=== PATIENT | male | born 1975 | race Caucasian/White ===

== ENCOUNTER 2021-08-10 21:12 | Emergency (ER) | payer OTHER ==
--- NOTE | 2021-08-10 22:13 | XR ---
EXAMINATION TYPE: XR ankle complete LT DATE OF EXAM: 08/10/2021 COMPARISON: NONE HISTORY: Pain TECHNIQUE: 3 views FINDINGS: There is a plate with screws fixing the distal fibula. Ankle mortise is anatomic. I see no fracture nor dislocation. There is plantar and Achilles calcaneal spurring. IMPRESSION: No acute abnormality of the left ankle.
[2021-08-10] MEDS: IBUPROFEN 600 MG TAB PO STA (22:29)
[2021-08-10] MEDS: ACET/COD 300 MG/30 MG STARTER PACK 6 TAB BTL PO STA (22:31)
--- NOTE | 2021-08-10 22:50 | ED ---
Lower Extremity Injury HPI - General Chief Complaint: Extremity Injury, Lower Stated Complaint: Broken Ankle Time Seen by Provider: 08/10/21 21:48 Source: patient, family, RN notes reviewed, old records reviewed Mode of arrival: ambulatory Limitations: no limitations - History of Present Illness Initial Comments: This is a 46-year-old male to the emergency room today. Patient Dese for evaluation of left ankle pain left ankle pain with history of left ankle surgery. He did so was ankle all walking and left swelling of the lateral aspect of the ankle. He does have some pain with bearing weight but no other complaints MD Complaint: ankle injury -: hour(s) Injury: Ankle: Left Type of Injury: inversion, hyperextension Place: home Severity: moderate Severity scale (1-10): 4 Improves With: nothing Worsens With: weight bearing Context: direct blow, running Associated Symptoms: able to partially bear weight Treatments Prior to Arrival: other (none) - Related Data Allergies Allergy/AdvReac Type Severity Reaction Status Date / Time No Known Allergies Allergy Verified 08/10/21 21:45 Review of Systems ROS Statement: Those systems with pertinent positive or pertinent negative responses have been documented in the HPI. ROS Other: All systems not noted in ROS Statement are negative. Past Medical History Past Medical History: No Reported History History of Any Multi-Drug Resistant Organisms: None Reported Additional Past Surgical History / Comment(s): left ankle Smoking Status: Current every day smoker Past Alcohol Use History: Daily Past Drug Use History: None Reported General Exam Limitations: no limitations General appearance: alert, in no apparent distress Head exam: Present: atraumatic, normocephalic, normal inspection Eye exam: Present: normal appearance, PERRL, EOMI. Absent: scleral icterus, conjunctival injection, periorbital swelling ENT exam: Present: normal exam, mucous membranes moist Neck exam: Present: normal inspection. Absent: tenderness, meningismus, lymphadenopathy Respiratory exam: Present: normal lung sounds bilaterally. Absent: respiratory distress, wheezes, rales, rhonchi, stridor Cardiovascular Exam: Present: normal rhythm, tachycardia, normal heart sounds. Absent: systolic murmur, diastolic murmur, rubs, gallop, clicks GI/Abdominal exam: Present: soft, normal bowel sounds. Absent: distended, tenderness, guarding, rebound, rigid Extremities exam: Present: normal inspection, full ROM, normal capillary refill. Absent: tenderness, pedal edema, joint swelling, calf tenderness Back exam: Present: normal inspection Neurological exam: Present: alert, oriented X3, CN II-XII intact Psychiatric exam: Present: normal affect, normal mood Skin exam: Present: warm, dry, intact, normal color. Absent: rash Course Vital Signs 08/10/21 08/10/21 08/10/21 21:43 21:48 23:10 Temperature 98.5 F 98.3 F Pulse Rate 102 H 82 Respiratory 20 16 Rate Blood Pressure 157/97 156/78 O2 Sat by Pulse 98 98 Oximetry - Reevaluation(s) Reevaluation #1: Medical record is reviewed Patient symptoms are improved here in the ER Patient informed results questions answered Medical Decision Making - Medical Decision Making 46 male to the ER for evaluation of left ankle pain. History of left ankle surgery x-rays negative patient can be discharged home - Radiology Data Radiology results: report reviewed (X-ray left ankle negative for acute disease), image reviewed Disposition Clinical Impression: Left ankle sprain Disposition: HOME SELF-CARE Condition: Good Instructions (If sedation given, give patient instructions): Ankle Sprain (ED) Is patient prescribed a controlled substance at d/c from ED?: No Referrals: None,Stated [Primary Care Provider] - 1-2 days
[2021-08-10 23:23] VITALS: BP 156/78; PULSE 82; RESP 16; TEMP 98.3
== END 2021-08-10 23:10 | disposition home or self-care (01) ==
LOC: EC 21:12
DX: S93.402A Sprain of unspecified ligament of left ankle, initial encounter (principal); F17.200 Nicotine dependence, unspecified, uncomplicated; Z72.89 Other problems related to lifestyle; X58.XXXA Exposure to other specified factors, initial encounter
CPT/HCPCS: 99283

== ENCOUNTER 2023-07-31 20:11 | Emergency (ER) | payer OTHER ==
[2023-07-31 20:41] VITALS: BP 164/93; PULSE 121; RESP 20; TEMP 98.4
--- NOTE | 2023-07-31 20:44 | ED ---
Lower Extremity Injury HPI - General Chief Complaint: Extremity Injury, Lower Stated Complaint: fall injured left ankle Time Seen by Provider: 07/31/23 20:44 Source: patient, RN notes reviewed Mode of arrival: ambulatory Limitations: no limitations - History of Present Illness Initial Comments: Patient is a 48-year-old male presented to ER with chief complaint of left ankle injury. Patient states he accidentally slipped on ice today and now is endorsing left ankle pain. Denies any paresthesias or other injuries. Denies any head injury, loss of consciousness. - Related Data Allergies Allergy/AdvReac Type Severity Reaction Status Date / Time No Known Allergies Allergy Verified 07/31/23 20:40 Review of Systems ROS Statement: Those systems with pertinent positive or pertinent negative responses have been documented in the HPI. ROS Other: All systems not noted in ROS Statement are negative. Past Medical History Past Medical History: No Reported History History of Any Multi-Drug Resistant Organisms: None Reported Past Surgical History: Orthopedic Surgery Additional Past Surgical History / Comment(s): left ankle Past Psychological History: No Psychological Hx Reported Smoking Status: Current every day smoker Past Alcohol Use History: Daily Past Drug Use History: Marijuana General Exam - General Exam Comments Initial Comments: Visual Physical Exam Vital signs reviewed General: Well-appearing, nontoxic, no acute distress. Head: Normocephalic, atraumatic Eyes: PERRLA, EOMI ENT: Airway patent Chest: Nonlabored breathing Skin: No visual rash, normal skin tone Neuro: Alert and oriented 3 Musculoskeletal: No gross abnormalities Limitations: no limitations Course Vital Signs 07/31/23 20:38 Temperature 98.4 F Pulse Rate 121 H Respiratory 20 Rate Blood Pressure 164/93 O2 Sat by Pulse 97 Oximetry Medical Decision Making - Medical Decision Making I performed the quick note portion of the exam. Electronically signed by Shaneka Corrigan PA-C Was pt. sent in by a medical professional or institution ([facility], T[employer] OPERATOR, urgent care, hospital, or detention...) When possible be specific @ -No Did you speak to anyone other than the patient for history (EMS, parent, family, police, friend...)? What history was obtained from this source @ -No Did you review nursing and triage notes (agree or disagree)? Why? @ -I reviewed and agree with nursing and triage notes Were old charts reviewed (outside hosp., previous admission, EMS record, old EKG, old radiological studies, urgent care reports/EKG's, detention records)? Report findings @ -No old charts were reviewed Differential Diagnosis (chest pain, altered mental status, abdominal pain women, abdominal pain men, vaginal bleeding, weakness, fever, dyspnea, syncope, headache, dizziness, GI bleed, back pain, seizure, CVA, palpatations, mental health, musculoskeletal)? @ -Differential Musculoskeletal Muscular strain, contusion, ligament sprain, fracture, arthritis, septic arthritis, bursitis, cellulitis, muscle spasm, nerve compression, DVT, arterial occlusion, herpes zoster, electrolyte abnormality, tumor.... This is not meant to be in all inclusive list EKG interpreted by me (3pts min.). @ -None X-rays interpreted by me (1pt min.). @ -Yes, left ankle x-ray shows no acute osseous abnormality. CT interpreted by me (1pt min.). @ -None done U/S interpreted by me (1pt. min.). @ -None done What testing was considered but not performed or refused? (CT, X-rays, U/S, labs)? Why? @ -None What meds were considered but not given or refused? Why? @ -None Did you discuss the management of the patient with other professionals (professionals i.e. , PA, TITLE CAMERA OPERATOR, lab, RT, psych nurse, social worker school, felt cementer, teacher, highway patrol officer, case specialist)? Give summary @ -No Was smoking cessation discussed for >3mins.? @ -I discussed smoking cessation for greater than 3 minutes. The risk of smoking were discussed with the patient including but not limited to risks of cancer, stroke, coronary artery disease and COPD. Also discussed with patient were multiple methods of quitting smoking. Lastly we discussed the financial cost of smoking. Was critical care preformed (if so, how long)? @ -No Were there social determinants of health that impacted care today? How? (Homelessness, low income, unemployed, alcoholism, drug addiction, transportation, low edu. Level, literacy, decrease access to med. care, long term, rehab)? @ -No Was there de-escalation of care discussed even if they declined (Discuss DNR or withdrawal of care, Hospice)? DNR status @ -No What co-morbidities impacted this encounter? (DM, HTN, Smoking, COPD, CAD, Cancer, CVA, ARF, Chemo, Hep., AIDS, mental health diagnosis, sleep apnea, morbid obesity)? @ -None Was patient admitted / discharged? Hospital course, mention meds given and route, prescriptions, significant lab abnormalities, going to OR and other pertinent info. @ -Discharge. Patient is a 48-year-old male presented to the ER with a chief complaint of left ankle injury. Patient has had previous surgery of left ankle by Dr. Caba. History and physical exam were completed. Vitals stable. Patient in no signs of acute distress. Patient's left lower extremity neurovascularly intact. There was mild edema to lateral malleolus. X-rays obtained show no acute osseous abnormality. Patient's ankle wrapped in Natanael wrap. Advised him to follow-up with Dr. Caba, orthopedic surgeon, if symptoms persist. Advised [id number] Tylenol and Motrin for pain control. Return parameters were discussed. Patient be discharged able condition with follow-up to orthopedics. Patient expressed understanding and agreement with care plan. Undiagnosed new problem with uncertain prognosis? @ -No Drug Therapy requiring intensive monitoring for toxicity (Heparin, Nitro, Insulin, Cardizem)? @ -No Were any procedures done? @ -No Diagnosis/symptom? @ -Left ankle sprain Acute, or Chronic, or Acute on Chronic? @ -Acute Uncomplicated (without systemic symptoms) or Complicated (systemic symptoms)? @ -Uncomplicated Side effects of treatment? @ -No Exacerbation, Progression, or Severe Exacerbation? @ -No Poses a threat to life or bodily function? How? (Chest pain, USA, ID, pneumonia, PE, COPD, DKA, ARF, appy, cholecystitis, CVA, Diverticulitis, Homicidal, Suicidal, threat to staff... and all critical care pts) @ -No - Radiology Data Radiology results: report reviewed, image reviewed Disposition Clinical Impression: Ankle sprain Disposition: HOME SELF-CARE Condition: Stable Instructions (If sedation given, give patient instructions): Ankle Sprain (ED) Additional Instructions: Please follow-up with Dr. Caba. You may take [id number] Tylenol and Motrin for pain control. Return to ER for any new or worsening symptoms. Is patient prescribed a controlled substance at d/c from ED?: No Referrals: None,Stated [Primary Care Provider] - 1-2 days Rizwan Caba DO [Doctor of Osteopathic Medicine] - 1-2 days Time of Disposition: 21:35
--- NOTE | 2023-07-31 21:04 | XR ---
EXAMINATION TYPE: XR ankle complete 3 views LT DATE OF EXAM: 07/31/2023 Comparison: 08/10/2021 Clinical History: 48-year-old male Pain after fall today Findings: Lateral plate-screw fixation distal fibula. There may be chronic partial union of a transverse fractu re of the distal fibula, similar appearance to 08/10/2021. Corticated ossific densities below both med ial and lateral malleoli measuring 6 mm and 7 mm respectively, remain unchanged, compatible with area s of old injury. Small posterior plantar heel spurs. There may be a small anterior tibiotalar joint e ffusion. No acute fracture, subluxation, dislocation is seen. Impression: Prior lateral plate and screw fixation distal fibula. Corticated ossific densities below the malleoli remain unchanged from 08/10/2021 compatible with sequela of old injury. No definite acute osseous abn ormality is seen.
== END 2023-07-31 21:59 | disposition home or self-care (01) ==
LOC: EC 20:11
DX: S93.402A Sprain of unspecified ligament of left ankle, initial encounter (principal); F12.90 Cannabis use, unspecified, uncomplicated; F17.200 Nicotine dependence, unspecified, uncomplicated; W00.0XXA Fall on same level due to ice and snow, initial encounter
CPT/HCPCS: 99283